=== PATIENT | female | born 1990 | race Caucasian/White ===

== ENCOUNTER 2016-10-04 11:07 | Emergency (ER) | payer OTHER ==
[~2016-10-04] VITALS: Ht 160 cm; Wt 56.6 kg
[~2016-10-04 11:07] MED LIST: ABILIFY15 MG PO; ADDERALL XR 3030 MG PO; ADDERALL30 MG PO; AMBIEN5 MG PO; ANAPROX275 MG PO; ATARAX,VISTARIL50 MG PO; BUSPAR15 MG PO; CAVAN-FOLATE D1 EACH; CELEXA20 MG PO; CLEOCIN300 MG PO; COLACE100 MG PO; Colace PO; DICLOFENAC SODI75 MG PO; ENDOCET 5-3251 EACH PO; FEOSOL325 MG PO; FLEXERIL5 MG PO; HYDROCH; HYDROCODON-ACE1 EAC7 PO; IBUPROFEN800 MG PO; INDOCIN25 MG PO; LIDOCAINE20 MG/1 M5 PO; LISINOPRIL20 MG PO; MACROBID100 MG PO; MOBIC7.5 MG PO; MOTRIN600 MG PO; MOTRIN800 MG PO; MYCOPHENOLATE500 MG PO; NAPROSYN500 MG PO; NO MEDS; NOHOMEMEDS; NYSTATIN100000 UN1 PO; ONDANSETRON ODT4 MG PO; PEN-VEE K,VEET500 MG PO; PHENERGAN12.5 MG PR; PLAQUENIL200 MG PO; PREDNISONE20 MG PO; SPRINTEC1 EACH PO; TYLENOL EXTRA500 MG PO; TYLENOL WITH C1 EACH PO; VALIUM10 MG PO; VALTREX50 MG/ML PO; VENTOLIN HFA18 GM IH; VICODIN 5-3001 EACH PO; XANAX XR1 MG PO; XANAX XR2 MG PO; XANAX2 MG PO; ZANTAC300 MG PO; ZOFRAN4 MG PO; Zofran PO
[2016-10-04 11:15] VITALS: BP 131/82
== END 2016-10-04 13:30 | disposition left against medical advice (07) ==
LOC: EME 11:07
DX: R50.9 Fever, unspecified (principal); Z53.21 Procedure and treatment not carried out due to patient leaving prior to being seen by health care provider

== ENCOUNTER 2016-10-28 11:41 | Emergency (ER) | payer OTHER ==
[~2016-10-28] VITALS: Ht 162.6 cm; Wt 58.9 kg
[2016-10-28 13:19] LABS: HEMATOCRIT 46.5 % (36.0-46.0); MCHC 32.7 G/DL (30.0-36.0); MCV 91.7 FL (83-99); MEAN PLAT.VOLUME 9.8 uM^3 (9.5-12.4); PLATELET COUNT 258 K/uL (156-360); RBC DIS.WIDTH-CV 14.6 % (11.8-14.6); RBC DIS.WIDTH-SD 49.1 % (39-53); RED BLOOD COUNT 5.07 M/uL (3.80-5.20); WHITE BLOOD COUNT 10.2 K/uL (4.1-10.2)
[2016-10-28 13:26] LABS: CHLORIDE 104 mEq/L (99-109); POTASSIUM 4.3 mEq/L (3.7-5.4)
[2016-10-28 13:27] LABS: SODIUM 138 mEq/L (136-147)
[2016-10-28 13:28] LABS: GLUCOSE 90 mg/dL (70-99)
[2016-10-28 13:30] LABS: ANION GAP 10 MEQ/L (2-14)
[2016-10-28 13:32] LABS: GFR ESTIMATE (CALCULATED) > 59 mL/min/
[2016-10-28 13:33] LABS: UREA NITROGEN (BUN) 6 mg/dL (9-23)
[2016-10-28] MEDS ORDERED: PREDNISONE20 MG PO (14:39)
[2016-10-28 14:55] VITALS: BP 122/80
[2016-10-28 15:39] LABS: INFLUENZA A VIRAL ANTIGEN NEGATIVE; INFLUENZA B VIRAL ANTIGEN NEGATIVE
== END 2016-10-28 14:56 | disposition home or self-care (01) ==
LOC: EME 11:41
PROVIDERS: Physician Assistant
DX: J45.901 Unspecified asthma with (acute) exacerbation (principal); J06.9 Acute upper respiratory infection, unspecified; F17.200 Nicotine dependence, unspecified, uncomplicated
CPT/HCPCS: 71020; 80048; 85027; 87502; 93005; 94640; 99281; 99283; J7512

== ENCOUNTER 2017-04-04 17:56 | Emergency (ER) | payer OTHER ==
[~2017-04-04] VITALS: Ht 162.6 cm; Wt 61.1 kg
[2017-04-04 18:29] LABS: MCH 31.3 PG (29.0-34.0); MCHC 33.6 G/DL (30.0-36.0); MEAN PLAT.VOLUME 9.4 uM^3 (9.5-12.4); PLATELET COUNT 280 K/uL (156-360); RBC DIS.WIDTH-CV 12.5 % (11.8-14.6); RBC DIS.WIDTH-SD 42.9 % (39-53); RED BLOOD COUNT 4.73 M/uL (3.80-5.20); WHITE BLOOD COUNT 12.6 K/uL (4.1-10.2)
[2017-04-04 18:38] LABS: CHLORIDE 101 mEq/L (99-109); POTASSIUM 4.7 mEq/L (3.7-5.4); SODIUM 138 mEq/L (136-147)
[2017-04-04 18:39] LABS: GLUCOSE 84 mg/dL (70-99)
[2017-04-04 18:41] LABS: ANION GAP 9 MEQ/L (2-14)
[2017-04-04 18:43] LABS: GFR ESTIMATE (CALCULATED) > 59 mL/min/
[2017-04-04 18:44] LABS: UREA NITROGEN (BUN) 10 mg/dL (9-23)
[2017-04-04 19:01] LABS: ADD MIUA? YES; BILIRUBIN NEGATIVE; BLOOD MODERATE; COLOR AMBER ((YELLOW)); GLUCOSE (STRIP) NEGATIVE; KETONES 5; LEUKOCYTES MODERATE; NITRITE POSITIVE; PROTEIN (STRIP) 30; SPECIFIC GRAVITY 1.026 (1.000-1.030)
[2017-04-04 19:19] LABS: BACTERIA 3+ /HPF; EPITHELIAL CELLS 4+ /HPF; MUCUS 1+ /LPF; UCUL ADDED? YES; WHITE BLOOD CELLS 20-30 /HPF (0-5)
[2017-04-04] MEDS ORDERED: KEFLEX500 MG PO (19:52)
[2017-04-04 20:35] VITALS: BP 126/59
== END 2017-04-04 20:35 | disposition home or self-care (01) ==
LOC: EME 17:56
DX: N39.0 Urinary tract infection, site not specified (principal); M41.9 Scoliosis, unspecified; J45.909 Unspecified asthma, uncomplicated; I10 Essential (primary) hypertension; Z87.440 Personal history of urinary (tract) infections; Z87.442 Personal history of urinary calculi; Z88.6 Allergy status to analgesic agent; F17.200 Nicotine dependence, unspecified, uncomplicated
CPT/HCPCS: 74176; 80048; 81003; 85027; 87077; 87086; 87186; 99281; 99285

== ENCOUNTER 2017-10-05 11:45 | Emergency (ER) | payer OTHER ==
[~2017-10-05] VITALS: Ht 165.1 cm; Wt 61.2 kg
[~2017-10-05 11:45] MED LIST changes: +KEFLEX500 MG PO
[2017-10-05 12:23] LABS: HEMATOCRIT 42.6 % (36.0-46.0); HEMOGLOBIN 14.7 G/DL (11.9-15.5); MCH 31.7 PG (29.0-34.0); MCHC 34.5 G/DL (30.0-36.0); MCV 91.8 FL (83-99); PLATELET COUNT 261 K/uL (156-360); RBC DIS.WIDTH-CV 12.9 % (11.8-14.6); RBC DIS.WIDTH-SD 43.5 % (39-53); RED BLOOD COUNT 4.64 M/uL (3.80-5.20); WHITE BLOOD COUNT 7.9 K/uL (4.1-10.2)
[2017-10-05 12:29] LABS: ALBUMIN 4.3 g/dL (3.2-4.8)
[2017-10-05 12:30] LABS: CHLORIDE 102 mEq/L (99-109); POTASSIUM 4.9 mEq/L (3.7-5.4); SODIUM 124 mEq/L (136-147)
[2017-10-05 12:32] LABS: GLUCOSE 115 mg/dL (70-99); TOTAL PROTEIN 6.9 g/dL (6.4-8.3)
[2017-10-05 12:34] LABS: TOTAL BILIRUBIN 0.5 mg/dL (0.0-1.0)
[2017-10-05 12:35] LABS: ALKALINE PHOSPHATASE 71 IU/L (3-129)
[2017-10-05 12:36] LABS: CREATININE 0.8 mg/dL (0.6-1.3); GFR ESTIMATE (CALCULATED) > 59 mL/min/
[2017-10-05 12:37] LABS: AST (GOT) 13 IU/L (2-34); UREA NITROGEN (BUN) 15 mg/dL (9-23)
[2017-10-05 12:39] LABS: ALT (GPT) 14 IU/L (3-49)
[2017-10-05 12:47] LABS: QUANTITATIVE HCG < 4.0 MIU/ML
[2017-10-05 13:14] LABS: APPEARANCE SL.HAZY ((CLEAR)); BILIRUBIN NEGATIVE; BLOOD MODERATE; COLOR YELLOW ((YELLOW)); GLUCOSE (STRIP) NEGATIVE; KETONES NEGATIVE; LEUKOCYTES NEGATIVE; NITRITE NEGATIVE; PROTEIN (STRIP) NEGATIVE; SPECIFIC GRAVITY 1.018 (1.000-1.030); UROBILINOGEN 0.2 MG/DL (0.2-1.0)
[2017-10-05 13:18] LABS: BACTERIA RARE /HPF; EPITHELIAL CELLS 2+ /HPF; MUCUS TRACE /LPF; UCUL ADDED? NO; WHITE BLOOD CELLS 0-5 /HPF (0-5)
[2017-10-05] MEDS ORDERED: NORCO 5/3251 TABLET PO (16:37)
[2017-10-05 16:51] VITALS: BP 114/63
== END 2017-10-05 17:14 | disposition home or self-care (01) ==
LOC: EME 11:45
DX: R10.2 Pelvic and perineal pain (principal); R31.9 Hematuria, unspecified; E87.1 Hypo-osmolality and hyponatremia; N20.0 Calculus of kidney; Z90.710 Acquired absence of both cervix and uterus; Z87.442 Personal history of urinary calculi; Z87.440 Personal history of urinary (tract) infections; J45.909 Unspecified asthma, uncomplicated
CPT/HCPCS: 74176; 76856; 80053; 81003; 84702; 85027; 99281; 99285; J1885; J3010; J7030

== ENCOUNTER 2018-03-07 12:02 | Emergency (ER) | payer OTHER ==
[~2018-03-07] VITALS: Ht 165.1 cm; Wt 59.3 kg
[~2018-03-07 12:02] MED LIST changes: +NORCO 5/3251 TABLET PO
[2018-03-07 12:30] VITALS: BP 126/90
== END 2018-03-07 13:27 | disposition left against medical advice (07) ==
LOC: EME 12:02
DX: N89.9 Noninflammatory disorder of vagina, unspecified (principal); Z53.21 Procedure and treatment not carried out due to patient leaving prior to being seen by health care provider